=== PATIENT | female | born 1995 | race Caucasian/White ===

== ENCOUNTER 2023-12-24 05:00 | Day surgery (SDC) | payer BC ==
[2023-12-24] MEDS: Sodium Chloride 0.9% 1,000 ML IV ONE (05:27)
[2023-12-24] MEDS: Ketorolac 15 MG/ML SDV IVPUSH ONE (05:27)
[2023-12-24 05:34] LABS: BASOPHILS PERCENT AUTO 0.2 % (0.0-1.0); EOSINOPHILS ABSOLUTE AUTO 0.1 K/mm3 (0.0-0.4); EOSINOPHILS PERCENT AUTO 0.6 % (0.0-6.0); HEMATOCRIT 38.4 % (37.0-47.0); HEMOGLOBIN 13.1 gm/dl (12.0-16.0); IMMATURE GRAN ABSOLUTE AUTO 0.05 K/mm3 (0.00-0.05); IMMATURE GRAN PERCENT AUTO 0.3 % (0.0-0.4); LYMPHOCYTES ABSOLUTE AUTO 1.2 K/mm3 (1.0-4.8); LYMPHOCYTES PERCENT AUTO 8.2 % (24.0-44.0); MEAN CORPUSCULAR HEMOGLOBIN 31.4 pg (28.0-32.0); MEAN CORPUSCULAR HGB CONC 34.1 g/dl (32.0-36.0); MEAN CORPUSCULAR VOLUME 92.1 fl (83.0-99.0); MEAN PLATELET VOLUME 9.1 fl (9.4-12.3); MONOCYTES ABSOLUTE AUTO 1.1 K/mm3 (0.0-0.8); MONOCYTES PERCENT AUTO 7.7 % (0.0-8.0); PLATELET COUNT,PLT 338 K/mm3 (150-400); RED BLOOD CELL COUNT 4.17 M/mm3 (4.10-5.30); WHITE BLOOD CELL COUNT,WBC 14.42 K/mm3 (3.9-11.3)
[2023-12-24] MEDS: Sodium Chloride 0.9% 10 ML Syringe FLUSH PRN (05:37)
[2023-12-24 05:48] LABS: A/G RATIO 1.1 (1-2); ANION GAP 14.8 (5-15); BILIRUBIN TOTAL 0.8 mg/dL (0.2-1.0); CALCIUM 9.3 mg/dL (8.5-10.1); CREATININE 0.8 mg/dL (0.55-1.02); EST CRCL DRUG DOSING (CG) 106.56 mL/min; POTASSIUM,K 3.8 mEq/L (3.5-5.1); PROTEIN TOTAL,TP 7.8 g/dl (6.4-8.2)
[2023-12-24] MEDS: Iopamidol 612 MG/ML 100 ML Bottle IVPUSH ONE (06:02)
[2023-12-24] MEDS: Iopamidol 612 MG/ML 30 ML SDV IVPUSH ONE (06:02)
[2023-12-24 06:23] LABS: APPEARANCE,URINE SLT CLOUDY (Clear); BILIRUBIN,URINE NEGATIVE (Negative); COLOR,URINE YELLOW (Yellow); GLUCOSE,URINE NEGATIVE (Negative); KETONES,URINE 2+ (Negative); LEUKOCYTE ESTERASE,URINE NEGATIVE (Negative); NITRITE,URINE NEGATIVE (Negative); OCCULT BLOOD,URINE TRACE-LYSED (Negative); PH,URINE 6.5 (5.0-8.0); PROTEIN,URINE NEGATIVE (Negative); UROBILINOGEN,URINE 0.2 (0.2-1.0)
[2023-12-24 06:33] LABS: BACTERIA,URINE FEW /hpf (FEW); MUCUS,URINE FEW /hpf (FEW); RBC,URINE 0-5 /hpf (0-5); SQUAMOUS EPITHELIAL CELLS,UR 0-5 /hpf (0-5); WBC,URINE 0-5 /hpf (0-5)
[2023-12-24] MEDS: cefTRIAXone 1 GM in Sodium Chloride 0.9% 100 ML IV ONE (06:36)
[2023-12-24] MEDS ORDERED: Midazolam 1 MG/ML 2 ML SDV ONE (06:38)
[2023-12-24] MEDS ORDERED: Propofol 200 MG/20 ML SDV ONE (06:38)
[2023-12-24] MEDS ORDERED: Rocuronium 50 MG/5 ML Vial ONE (06:38)
[2023-12-24] MEDS ORDERED: fentaNYL 250 MCG/5 ML SDV ONE (06:38)
[2023-12-24] MEDS ORDERED: ceFAZolin 2 GM Vial ONE (06:38)
[2023-12-24] MEDS: metroNIDAZOLE/Normal Saline 500 MG in Premix Bag 1 BAG IV ONE (06:56)
[2023-12-24] MEDS ORDERED: HYDROmorphone 0.5 MG/0.5 ML Syringe ONE (07:58)
[2023-12-24] MEDS ORDERED: Ondansetron 4 MG/2 ML SDV ONE ×2 (08:15)
[2023-12-24] MEDS ORDERED: Sugammadex Sodium 200 MG/2 ML VIAL IV ONE (08:16)
[2023-12-24] MEDS: Bupivacaine 0.5% 30 ML SDV ONE (08:42)
[2023-12-24] MEDS: Lidocaine 1% with EPINEPHrine 1:100,000 20 ML MDV ONE (08:42)
[2023-12-24] MEDS: EPINEPHrine 1 MG/ML SDV ONE (08:42)
[2023-12-24] MEDS ORDERED: Ketorolac 30 MG/ML SDV ONE (09:30)
[2023-12-24] MEDS: fentaNYL 100 MCG/2 ML SDV IVPUSH PRN (10:02)
[2023-12-24] MEDS: Acetaminophen/oxyCODONE 325-5 MG Tab PO ONE (11:07)
== END 2023-12-24 11:30 ==
LOC: JD.ED 05:00 → JD.SDS 06:40
PROVIDERS: ATTEND Surgery
DX: K35.33 Acute appendicitis with perforation, localized peritonitis, and gangrene, with abscess (principal)
CPT/HCPCS: 36415; 74177; 74177-26; 80053; 81001; 83690; 84703; 85025; 96365; 96367; 96375; 99285-25; A9270-GY; J0171; J0665; J0690; J0696; J1170; J1836; J1885; J2250; J2405; J2704; J3010; J3490; J7030; Q9967